=== PATIENT | female | born 1960 | race Caucasian/White ===

== ENCOUNTER 2016-10-14 08:00 | Day surgery (SDC) | payer OTHER ==
[2016-10-10 12:23] VITALS: BMI 24.1
[2016-10-14] MEDS ORDERED: PROPOFOL 20 ML ONE (08:09)
[2016-10-14 08:18] VITALS: TEMP 97.9
[2016-10-14 11:28] VITALS: BP 120/74; PULSE 58
--- NOTE | 2016-10-15 13:31 | PATH ---
Surgical Pathology Report Patient Name: GARCÍA RICH [facility]. Rec. #: [id number] /Age/Gender: 1960 (Age: 56) / F Account: [id number] Location: [facility]-ENDOSCOPY Taken: 10/14/2016 Received: 10/14/2016 Reported: 10/15/2016 Physicians: Mario Keller M.D. Specimen(s) Received A: BX DUODENUM B: BX ANTRUM C: BX ESOPHAGUS Clinical History GERD Rule out celiac disease, gastritis, rule out eosinophilic esophagitis Final Diagnosis A. DUODENUM, BIOPSY: DUODENAL MUCOSA WITH NO SIGNIFICANT PATHOLOGIC CHANGES. NO HISTOLOGIC EVIDENCE OF GLUTEN SENSITIVE ENTEROPATHY (CELIAC DISEASE). B. STOMACH, ANTRUM, BIOPSY: GASTRIC ANTRAL MUCOSA WITH MODERATE CHRONIC GASTRITIS AND REACTIVE GASTROPATHY. IMMUNOSTAIN FOR H. PYLORI IS NEGATIVE FOR ORGANISMS. C. ESOPHAGUS, BIOPSY: SQUAMOUS EPITHELIUM WITH CHRONIC INFLAMMATION AND REFLUX TYPE CHANGES. NO EVIDENCE OF EOSINOPHILIC ESOPHAGITIS. NO COLUMNAR EPITHELIUM PRESENT (NO INTESTINAL METAPLASIA ESOPHAGUS IDENTIFIED IN THE EXAMINED MATERIAL). Electronically Signed Clarke Strong M.D. Gross Description A. Received in formalin, labeled "duodenum" are 3 branham, irregular portions of soft tissue ranging from 0.3-0.7 cm in greatest dimension. The specimens are submitted in toto in one cassette. B. Received in formalin, labeled "antrum" are 2 branham, irregular portions of soft tissue averaging 0.5 cm in greatest dimension. The specimens are submitted in toto in one cassette. C. Received in formalin, labeled "esophagus" are 2 branham, irregular portions of soft tissue averaging 0.4 cm in greatest dimension. The specimens are submitted in toto in one cassette. 10/14/201610/14/2016
== END 2016-10-14 10:30 | disposition home or self-care (01) ==
LOC: FASU-ENDO 08:00
PROVIDERS: ATTEND Internal Medicine Gastroenterology
PROC: 0DB58ZX Excision of Esophagus, Via Natural or Artificial Opening Endoscopic, Diagnostic (ICD-10-PCS; 2016-10-14)
PROC: 0DB98ZX Excision of Duodenum, Via Natural or Artificial Opening Endoscopic, Diagnostic (ICD-10-PCS; principal; 2016-10-14 09:32)
PROC: 0DB68ZX Excision of Stomach, Via Natural or Artificial Opening Endoscopic, Diagnostic (ICD-10-PCS; 2016-10-14 09:32)
DX: K29.50 Unspecified chronic gastritis without bleeding (principal); K31.9 Disease of stomach and duodenum, unspecified
CPT/HCPCS: 88305-TC; 88342-TC